=== PATIENT | male | born 1965 | race Two or more races ===

== ENCOUNTER 2020-10-04 12:58 | Emergency (ER) | payer OTHER ==
[2020-10-04] MEDS ORDERED: PIPERACILLIN/TAZOB 2.25 GM 2.25 GM in DEXTROSE 5%-WATER - 50 ML IVPB ONE (13:52)
[2020-10-04] MEDS ORDERED: VANCOMYCIN 1,000 MG in DEXTROSE 5%-WATER - 250 ML IVPB ONE (13:52)
[2020-10-04 13:55] VITALS: BMI 29.2
[2020-10-04] MEDS ORDERED: PIPERACILLIN/TAZOB 2.25 GM 2.25 GM/50 ML BAG IVPB ONE (14:10)
[2020-10-04] MEDS ORDERED: VANCOMYCIN 1 GRAM (PRE-DOCKED) 1,000 MG/250 ML BAG IVPB ONE (14:10)
[2020-10-04 15:00] LABS: BASO % 0.4 % (0-2.0); EOS % 0.3 % (0-4.5); HEMOGLOBIN 8.4 GM/dL (11.7-16.9); LYMPH % 4.5 % (8-40); MCH 29.1 pg (25.7-33.7); MCHC 32.2 g/dl (32.0-35.9); MEAN CELL VOLUME 90.5 fl (80-96); MEAN PLT VOLUME 9.8 fl (7.5-11.1); MONO % 5.4 % (3.8-10.2); NEUT % 89.4 % (42.8-82.8); PLATELET COUNT 207 K/MM3 (134-434); RBC 2.88 M/mm3 (4.00-5.60); RDW 17.9 % (11.9-15.9); WHITE BLOOD COUNT 8.8 K/mm3 (4.0-10.0)
[2020-10-04 15:23] LABS: ALBUMIN 2.4 g/dl (3.4-5.0); CALCIUM 7.4 mg/dL (8.5-10.1)
[2020-10-04 15:27] LABS: CREATININE 6.8 mg/dL (0.55-1.3)
[2020-10-04 15:28] LABS: TOT PROT 6.6 g/dl (6.4-8.2)
[2020-10-04 17:51] VITALS: BP 152/73; PULSE 77; TEMP 97.5
== END 2020-10-04 17:52 | disposition left against medical advice (07) ==
LOC: JER 12:58
DX: R73.9 Hyperglycemia, unspecified (principal)
CPT/HCPCS: 36415; 71045-TC-FY; 80053; 82962; 83605; 84484; 85025; 87040; 93005; 93010; C9803; G2251-GT; U0003

== ENCOUNTER 2020-11-13 00:30 | Inpatient (IN) | payer OTHER ==
[2020-11-13 00:40] VITALS: BMI 28.0
[2020-11-13] MEDS ORDERED: VANCOMYCIN 1,000 MG in DEXTROSE 5%-WATER - 250 ML IVPB ONE (01:19)
[2020-11-13] MEDS ORDERED: CEFEPIME HCL/D5W 1 GM/50 ML BAG IVPB ONE (01:20)
[2020-11-13] MEDS ORDERED: VANCOMYCIN 1 GRAM (PRE-DOCKED) 1,000 MG/250 ML BAG IVPB ONE ×2 (01:59→14:00)
[2020-11-13] MEDS ORDERED: CEFEPIME 1 GM/100 ML BAG IVPB ONE (01:59)
[2020-11-13 02:22] LABS: BASO % 0.9 % (0-2.0); HEMATOCRIT 25.7 % (35.4-49); HEMOGLOBIN 8.5 GM/dL (11.7-16.9); LYMPH % 11.8 % (8-40); MCH 28.9 pg (25.7-33.7); MCHC 33.2 g/dl (32.0-35.9); MEAN CELL VOLUME 86.9 fl (80-96); MEAN PLT VOLUME 9.6 fl (7.5-11.1); MONO % 8.1 % (3.8-10.2); NEUT % 78.2 % (42.8-82.8); PLATELET COUNT 278 K/MM3 (134-434); RBC 2.96 M/mm3 (4.00-5.60); RDW 17.1 % (11.9-15.9); WHITE BLOOD COUNT 8.8 K/mm3 (4.0-10.0)
[2020-11-13 02:53] LABS: CALCIUM 8.3 mg/dL (8.5-10.1)
[2020-11-13 02:54] LABS: ALBUMIN 2.7 g/dl (3.4-5.0); BLOOD UREA NITROGEN 50.5 mg/dL (7-18)
[2020-11-13 02:56] LABS: CREATININE 7.1 mg/dL (0.55-1.3)
[2020-11-13 02:58] LABS: BILIRUBIN,TOTAL 0.6 mg/dL (0.2-1); TOT PROT 7.6 g/dl (6.4-8.2)
[2020-11-13] MEDS ORDERED: ACETAMINOPHEN 500 MG TABLET (FP) PO ONE (03:28)
[2020-11-13] MEDS ORDERED: ACETAMINOPHEN INJECTION 100 ML IVPB ONE (03:29)
[2020-11-13] MEDS ORDERED: ACETAMINOPHEN 325 MG TABLET (FP) ONE (03:30)
[2020-11-13] MEDS ORDERED: amLODIPine BESYLATE 5 MG TABLET (FP) PO ONE (04:53)
[2020-11-13] MEDS ORDERED: oxyCODONE HCL 5 MG TABLET PO ONE (05:04)
[2020-11-13] MEDS ORDERED: amLODIPine BESYLATE 5 MG TABLET (FP) ONE (05:08)
[2020-11-13] MEDS ORDERED: oxyCODONE HCL 5 MG TABLET ONE (05:09)
[2020-11-13] MEDS ORDERED: HEPARIN NA (PORCINE) 5,000 UNITS/ML 1ML VIAL ONE (06:27)
[2020-11-13] MEDS: HEPARIN NA (PORCINE) 5,000 UNITS/ML 1ML VIAL SQ SCH ×3 (06:36→22:16)
[2020-11-13 06:48] LABS: BASO % 0.9 % (0-2.0); EOS % 0.4 % (0-4.5); HEMATOCRIT 24.5 % (35.4-49); HEMOGLOBIN 8.1 GM/dL (11.7-16.9); LYMPH % 16.6 % (8-40); MCH 28.8 pg (25.7-33.7); MCHC 33.1 g/dl (32.0-35.9); MEAN CELL VOLUME 87.1 fl (80-96); MEAN PLT VOLUME 9.6 fl (7.5-11.1); MONO % 9.8 % (3.8-10.2); NEUT % 72.3 % (42.8-82.8); PLATELET COUNT 259 K/MM3 (134-434); RBC 2.82 M/mm3 (4.00-5.60); RDW 16.8 % (11.9-15.9); WHITE BLOOD COUNT 7.7 K/mm3 (4.0-10.0)
[2020-11-13 07:06] LABS: CHLORIDE 103 mmol/L (98-107); POTASSIUM 4.6 mmol/L (3.5-5.1); SODIUM 136 mmol/L (136-145)
[2020-11-13 07:10] LABS: CALCIUM 7.9 mg/dL (8.5-10.1)
[2020-11-13 07:12] LABS: ALBUMIN 2.6 g/dl (3.4-5.0); ANION GAP 7 MMOL/L (8-16); BLOOD UREA NITROGEN 53.1 mg/dL (7-18); CO2 26 mmol/L (21-32); GLUCOSE,RANDOM 103 mg/dL (74-106); MAGNESIUM 2.1 mg/dL (1.8-2.4)
[2020-11-13 07:15] LABS: BILIRUBIN,TOTAL 0.6 mg/dL (0.2-1); IRON SERUM 23 ug/dL (50-175); SGOT/AST 33 U/L (15-37); SGPT/ALT 37 U/L (13-61); TOT PROT 7.1 g/dl (6.4-8.2)
[2020-11-13 07:17] LABS: ALK PHOS 244 U/L (45-117); TOTAL IRON BINDING CAPACITY 214 ug/dL (250-450)
[2020-11-13] MEDS: INSULIN SLIDING SCALE (NOVOLOG) 1 VIAL SQ SCH ×4 (07:27→22:16)
[2020-11-13 07:34] LABS: CREATININE 7.6 mg/dL (0.55-1.3)
[2020-11-13] MEDS ORDERED: CEFEPIME 0.5 GM in DEXTROSE 5%-WATER - 100 ML IVPB SCH (10:00)
[2020-11-13] MEDS ORDERED: DEXTROSE 5%-WATER - 50 ML IVPB ONE ×2 (12:44→17:52)
[2020-11-13] MEDS ORDERED: PIPERACILLIN/TAZOBACTAM 2.25 GM VIAL IVPB ONE ×2 (12:44→17:52)
[2020-11-13] MEDS: PIPERACILLIN/TAZOB 2.25 GM 2.25 GM in DEXTROSE 5%-WATER - 50 ML IVPB SCH ×2 (12:46→17:57)
[2020-11-13] MEDS: amLODIPine BESYLATE 5 MG TABLET (FP) PO SCH (13:02)
[2020-11-13] MEDS ORDERED: oxyCODONE HCL 5 MG TABLET PO PRN (16:12)
[2020-11-13] MEDS ORDERED: FUROSEMIDE 40 MG TABLET (FP) PO ONE (16:59)
[2020-11-13] MEDS ORDERED: clonazePAM 2 MG TABLET PO PRN (17:05)
[2020-11-13] MEDS ORDERED: ZOLPIDEM TARTRATE 5 MG TABLET PO PRN (17:06)
[2020-11-13] MEDS ORDERED: risperiDONE 1 MG TABLET PO ONE (18:00)
[2020-11-13] MEDS ORDERED: ARIPiprazole 15 MG TABLET PO ONE (18:00)
[2020-11-13] MEDS: ACETAMINOPHEN 325 MG TABLET (FP) PO PRN (22:16)
[2020-11-13] MEDS ORDERED: ONDANSETRON 4 MG/2 ML VIAL IVPUSH ONE (22:55)
[2020-11-14] MEDS ORDERED: PIPERACILLIN/TAZOBACTAM 2.25 GM VIAL IVPB ONE ×4 (01:46→16:55)
[2020-11-14] MEDS ORDERED: DEXTROSE 5%-WATER - 50 ML IVPB ONE ×4 (01:46→16:55)
[2020-11-14] MEDS: PIPERACILLIN/TAZOB 2.25 GM 2.25 GM in DEXTROSE 5%-WATER - 50 ML IVPB SCH ×4 (02:15→18:03)
[2020-11-14] MEDS: INSULIN SLIDING SCALE (NOVOLOG) 1 VIAL SQ SCH ×4 (06:35→22:28)
[2020-11-14] MEDS: HEPARIN NA (PORCINE) 5,000 UNITS/ML 1ML VIAL SQ SCH ×3 (06:35→22:28)
[2020-11-14] MEDS ORDERED: EPOETIN ALFA-EPBX 10,000 UNIT/ML VIAL SQ ONE (08:00)
[2020-11-14] MEDS ORDERED: SODIUM CHLORIDE 250 ML IV PRN ×2 (08:00→12:47)
[2020-11-14] MEDS ORDERED: CEFEPIME 0.5 GM in DEXTROSE 5%-WATER - 100 ML IVPB SCH (10:00)
[2020-11-14 10:41] LABS: BASO % 1.1 % (0-2.0); EOS % 1.7 % (0-4.5); HEMATOCRIT 24.5 % (35.4-49); HEMOGLOBIN 8.4 GM/dL (11.7-16.9); LYMPH % 13.5 % (8-40); MCH 29.2 pg (25.7-33.7); MCHC 34.3 g/dl (32.0-35.9); MEAN CELL VOLUME 84.9 fl (80-96); NEUT % 75.7 % (42.8-82.8); PLATELET COUNT 276 K/MM3 (134-434); RBC 2.89 M/mm3 (4.00-5.60); RDW 16.7 % (11.9-15.9); WHITE BLOOD COUNT 7.1 K/mm3 (4.0-10.0)
[2020-11-14 11:06] LABS: POTASSIUM 3.6 mmol/L (3.5-5.1)
[2020-11-14 11:07] LABS: ALBUMIN 2.8 g/dl (3.4-5.0); BLOOD UREA NITROGEN 37.1 mg/dL (7-18); CALCIUM 8.2 mg/dL (8.5-10.1)
[2020-11-14 11:10] LABS: CREATININE 4.9 mg/dL (0.55-1.3)
[2020-11-14 11:11] LABS: BILIRUBIN,TOTAL 0.7 mg/dL (0.2-1); TOT PROT 7.4 g/dl (6.4-8.2)
[2020-11-14] MEDS: amLODIPine BESYLATE 5 MG TABLET (FP) PO SCH (15:17)
[2020-11-14] MEDS: ACETAMINOPHEN 325 MG TABLET (FP) PO PRN (22:08)
[2020-11-15] MEDS ORDERED: PIPERACILLIN/TAZOBACTAM 2.25 GM VIAL IVPB ONE ×3 (01:36→19:56)
[2020-11-15] MEDS ORDERED: DEXTROSE 5%-WATER - 50 ML IVPB ONE ×3 (01:36→19:56)
[2020-11-15] MEDS: PIPERACILLIN/TAZOB 2.25 GM 2.25 GM in DEXTROSE 5%-WATER - 50 ML IVPB SCH ×3 (01:43→20:01)
[2020-11-15] MEDS: ACETAMINOPHEN 325 MG TABLET (FP) PO PRN ×2 (01:43→13:00)
[2020-11-15] MEDS: INSULIN SLIDING SCALE (NOVOLOG) 1 VIAL SQ SCH ×4 (06:04→21:09)
[2020-11-15] MEDS: HEPARIN NA (PORCINE) 5,000 UNITS/ML 1ML VIAL SQ SCH ×3 (06:04→21:05)
[2020-11-15 09:02] LABS: BASO % 0.9 % (0-2.0); EOS % 2.2 % (0-4.5); HEMATOCRIT 24.6 % (35.4-49); HEMOGLOBIN 8.3 GM/dL (11.7-16.9); LYMPH % 20.7 % (8-40); MCH 29.2 pg (25.7-33.7); MCHC 33.9 g/dl (32.0-35.9); MEAN CELL VOLUME 86.1 fl (80-96); MEAN PLT VOLUME 9.5 fl (7.5-11.1); MONO % 11.7 % (3.8-10.2); NEUT % 64.5 % (42.8-82.8); PLATELET COUNT 263 K/MM3 (134-434); RBC 2.85 M/mm3 (4.00-5.60); RDW 16.6 % (11.9-15.9); WHITE BLOOD COUNT 6.5 K/mm3 (4.0-10.0)
[2020-11-15 09:28] LABS: POTASSIUM 4.9 mmol/L (3.5-5.1)
[2020-11-15] MEDS ORDERED: CEFEPIME 0.5 GM in DEXTROSE 5%-WATER - 100 ML IVPB SCH (10:00)
[2020-11-15] MEDS ORDERED: FUROSEMIDE 40 MG TABLET (FP) PO SCH (10:00)
[2020-11-15 10:33] LABS: CALCIUM 7.9 mg/dL (8.5-10.1)
[2020-11-15 10:34] LABS: ALBUMIN 2.6 g/dl (3.4-5.0)
[2020-11-15 10:36] LABS: MAGNESIUM 2.1 mg/dL (1.8-2.4)
[2020-11-15 10:37] LABS: CREATININE 6.9 mg/dL (0.55-1.3)
[2020-11-15 10:38] LABS: BILIRUBIN,TOTAL 0.6 mg/dL (0.2-1); TOT PROT 7.2 g/dl (6.4-8.2)
[2020-11-15] MEDS ORDERED: VANCOMYCIN 1 GRAM (PRE-DOCKED) 1,000 MG/250 ML BAG IVPB ONE (11:13)
[2020-11-15] MEDS: amLODIPine BESYLATE 5 MG TABLET (FP) PO SCH (12:18)
[2020-11-15] MEDS: ARIPiprazole 30 MG TABLET PO SCH (12:18)
[2020-11-15] MEDS: FUROSEMIDE 40 MG TABLET (FP) PO SCH (12:18)
[2020-11-15] MEDS: risperiDONE 2 MG TABLET PO SCH (12:19)
[2020-11-16] MEDS ORDERED: PIPERACILLIN/TAZOBACTAM 2.25 GM VIAL IVPB ONE ×3 (02:42→21:30)
[2020-11-16] MEDS ORDERED: DEXTROSE 5%-WATER - 50 ML IVPB ONE ×2 (02:43→14:17)
[2020-11-16] MEDS: PIPERACILLIN/TAZOB 2.25 GM 2.25 GM in DEXTROSE 5%-WATER - 50 ML IVPB SCH ×3 (02:46→21:33)
[2020-11-16] MEDS: HEPARIN NA (PORCINE) 5,000 UNITS/ML 1ML VIAL SQ SCH ×3 (05:38→21:46)
[2020-11-16] MEDS: INSULIN SLIDING SCALE (NOVOLOG) 1 VIAL SQ SCH ×4 (06:45→21:46)
[2020-11-16] MEDS ORDERED: SODIUM CHLORIDE 250 ML IV PRN (07:57)
[2020-11-16] MEDS ORDERED: EPOETIN ALFA-EPBX 4,000 UNIT/ML VIAL SQ ONE (08:00)
[2020-11-16 09:52] LABS: EOS % 2.3 % (0-4.5); HEMATOCRIT 24.5 % (35.4-49); HEMOGLOBIN 8.3 GM/dL (11.7-16.9); LYMPH % 18.3 % (8-40); MCH 29.2 pg (25.7-33.7); MCHC 33.9 g/dl (32.0-35.9); MEAN CELL VOLUME 86.3 fl (80-96); MEAN PLT VOLUME 9.7 fl (7.5-11.1); MONO % 8.8 % (3.8-10.2); NEUT % 69.6 % (42.8-82.8); PLATELET COUNT 245 K/MM3 (134-434); RBC 2.84 M/mm3 (4.00-5.60); RDW 17.1 % (11.9-15.9); WHITE BLOOD COUNT 5.8 K/mm3 (4.0-10.0)
[2020-11-16 10:08] LABS: CHLORIDE 99 mmol/L (98-107); POTASSIUM 4.7 mmol/L (3.5-5.1); SODIUM 137 mmol/L (136-145)
[2020-11-16 10:09] LABS: ALBUMIN 2.6 g/dl (3.4-5.0); ANION GAP 11 MMOL/L (8-16); CALCIUM 8.3 mg/dL (8.5-10.1); CO2 26 mmol/L (21-32); GLUCOSE,RANDOM 204 mg/dL (74-106); MAGNESIUM 2.4 mg/dL (1.8-2.4)
[2020-11-16 10:12] LABS: SGOT/AST 34 U/L (15-37); SGPT/ALT 37 U/L (13-61)
[2020-11-16 10:14] LABS: BILIRUBIN,TOTAL 0.6 mg/dL (0.2-1); CREATININE 8.7 mg/dL (0.55-1.3); TOT PROT 7.2 g/dl (6.4-8.2)
[2020-11-16 10:15] LABS: ALK PHOS 244 U/L (45-117)
[2020-11-16] MEDS: ARIPiprazole 30 MG TABLET PO SCH (11:50)
[2020-11-16] MEDS: risperiDONE 2 MG TABLET PO SCH (11:50)
[2020-11-16] MEDS: amLODIPine BESYLATE 5 MG TABLET (FP) PO SCH (11:50)
[2020-11-16] MEDS ORDERED: hydrALAZINE HCL 20 MG/ML VIAL IVPB ONE (11:55)
[2020-11-16] MEDS ORDERED: PT OWN MED DRAWER 7, Y5N ONE (16:43)
[2020-11-16] MEDS: ACETAMINOPHEN 325 MG TABLET (FP) PO PRN (20:39)
[2020-11-17] MEDS ORDERED: PIPERACILLIN/TAZOBACTAM 2.25 GM VIAL IVPB ONE ×3 (01:47→18:06)
[2020-11-17] MEDS ORDERED: DEXTROSE 5%-WATER - 50 ML IVPB ONE ×3 (01:47→18:07)
[2020-11-17] MEDS: PIPERACILLIN/TAZOB 2.25 GM 2.25 GM in DEXTROSE 5%-WATER - 50 ML IVPB SCH ×3 (01:49→18:09)
[2020-11-17] MEDS: HEPARIN NA (PORCINE) 5,000 UNITS/ML 1ML VIAL SQ SCH ×3 (05:48→21:36)
[2020-11-17] MEDS: INSULIN SLIDING SCALE (NOVOLOG) 1 VIAL SQ SCH ×4 (06:13→21:36)
[2020-11-17 08:48] LABS: BASO % 1.3 % (0-2.0); EOS % 2.3 % (0-4.5); HEMATOCRIT 24.9 % (35.4-49); HEMOGLOBIN 8.5 GM/dL (11.7-16.9); LYMPH % 19.7 % (8-40); MCH 29.2 pg (25.7-33.7); MEAN PLT VOLUME 8.9 fl (7.5-11.1); MONO % 8.6 % (3.8-10.2); NEUT % 68.1 % (42.8-82.8); PLATELET COUNT 266 K/MM3 (134-434); RDW 17.1 % (11.9-15.9); WHITE BLOOD COUNT 6.5 K/mm3 (4.0-10.0)
[2020-11-17 08:53] LABS: POTASSIUM 4.5 mmol/L (3.5-5.1)
[2020-11-17 09:12] LABS: ALBUMIN 2.7 g/dl (3.4-5.0); CALCIUM 8.9 mg/dL (8.5-10.1); PHOSPHOROUS 6.7 mg/dL (2.5-4.9)
[2020-11-17 09:13] LABS: BLOOD UREA NITROGEN 45.6 mg/dL (7-18); MAGNESIUM 2.3 mg/dL (1.8-2.4)
[2020-11-17 09:16] LABS: CREATININE 6.7 mg/dL (0.55-1.3)
[2020-11-17 09:17] LABS: BILIRUBIN,TOTAL 0.6 mg/dL (0.2-1)
[2020-11-17 09:20] LABS: TOT PROT 7.5 g/dl (6.4-8.2)
[2020-11-17] MEDS: ARIPiprazole 30 MG TABLET PO SCH (10:03)
[2020-11-17] MEDS: risperiDONE 1 MG TABLET PO SCH (10:04)
[2020-11-17] MEDS: FUROSEMIDE 40 MG TABLET (FP) PO SCH (10:08)
[2020-11-17] MEDS: amLODIPine BESYLATE 5 MG TABLET (FP) PO SCH (11:06)
[2020-11-17] MEDS ORDERED: SODIUM CHLORIDE 250 ML IV PRN (11:15)
[2020-11-17] MEDS: MUPIROCIN 2% TOPICAL OINTMENT 22 GM TUBE TP SCH ×2 (16:00→21:37)
[2020-11-17] MEDS ORDERED: INSULIN (NOVOLOG) ASPART 100 UNITS/ML 10ML VIAL ONE (17:38)
[2020-11-18] MEDS ORDERED: DEXTROSE 5%-WATER - 50 ML IVPB ONE ×2 (00:29→09:25)
[2020-11-18] MEDS ORDERED: PIPERACILLIN/TAZOBACTAM 2.25 GM VIAL IVPB ONE ×2 (00:29→09:25)
[2020-11-18] MEDS: PIPERACILLIN/TAZOB 2.25 GM 2.25 GM in DEXTROSE 5%-WATER - 50 ML IVPB SCH ×2 (02:13→15:03)
[2020-11-18] MEDS: HEPARIN NA (PORCINE) 5,000 UNITS/ML 1ML VIAL SQ SCH ×3 (06:31→23:19)
[2020-11-18] MEDS: INSULIN SLIDING SCALE (NOVOLOG) 1 VIAL SQ SCH ×4 (06:34→23:19)
[2020-11-18] MEDS ORDERED: PT OWN MED DRAWER 7, Y5N ONE (09:25)
[2020-11-18] MEDS: amLODIPine BESYLATE 5 MG TABLET (FP) PO SCH (09:32)
[2020-11-18] MEDS: ARIPiprazole 30 MG TABLET PO SCH (09:33)
[2020-11-18] MEDS: risperiDONE 1 MG TABLET PO SCH (09:33)
[2020-11-18] MEDS: MUPIROCIN 2% TOPICAL OINTMENT 22 GM TUBE TP SCH ×2 (09:33→23:18)
[2020-11-18 11:09] LABS: BASO % 1.2 % (0-2.0); EOS % 2.3 % (0-4.5); HEMATOCRIT 23.9 % (35.4-49); HEMOGLOBIN 8.1 GM/dL (11.7-16.9); LYMPH % 18.5 % (8-40); MCHC 33.7 g/dl (32.0-35.9); MEAN CELL VOLUME 85.9 fl (80-96); MEAN PLT VOLUME 9.1 fl (7.5-11.1); MONO % 6.8 % (3.8-10.2); NEUT % 71.2 % (42.8-82.8); PLATELET COUNT 246 K/MM3 (134-434); RBC 2.78 M/mm3 (4.00-5.60); RDW 17.1 % (11.9-15.9); WHITE BLOOD COUNT 6.7 K/mm3 (4.0-10.0)
[2020-11-18] MEDS ORDERED: HEPARIN NA (PORCINE) 5,000 UNITS/ML 1ML VIAL IVPUSH ONE (11:15)
[2020-11-18 11:47] LABS: CHLORIDE 99 mmol/L (98-107); POTASSIUM 4.3 mmol/L (3.5-5.1); SODIUM 134 mmol/L (136-145)
[2020-11-18 11:53] LABS: CALCIUM 8.1 mg/dL (8.5-10.1)
[2020-11-18 11:54] LABS: ALBUMIN 2.6 g/dl (3.4-5.0); ANION GAP 10 MMOL/L (8-16); BLOOD UREA NITROGEN 58.6 mg/dL (7-18); CO2 25 mmol/L (21-32); GLUCOSE,RANDOM 178 mg/dL (74-106); MAGNESIUM 2.1 mg/dL (1.8-2.4)
[2020-11-18 11:57] LABS: SGOT/AST 43 U/L (15-37); SGPT/ALT 46 U/L (13-61)
[2020-11-18 11:58] LABS: BILIRUBIN,TOTAL 0.9 mg/dL (0.2-1); TOT PROT 7.4 g/dl (6.4-8.2)
[2020-11-18 12:00] LABS: ALK PHOS 245 U/L (45-117)
[2020-11-18] MEDS ORDERED: EPOETIN ALFA-EPBX 4,000 UNIT/ML VIAL SQ ONE (12:00)
[2020-11-18] MEDS: LOSARTAN POTASSIUM 50 MG TABLET PO SCH (17:22)
[2020-11-18] MEDS: ACETAMINOPHEN 325 MG TABLET (FP) PO PRN (21:24)
[2020-11-19] MEDS: ACETAMINOPHEN 325 MG TABLET (FP) PO PRN (04:25)
[2020-11-19] MEDS: INSULIN SLIDING SCALE (NOVOLOG) 1 VIAL SQ SCH ×4 (06:10→21:22)
[2020-11-19] MEDS: HEPARIN NA (PORCINE) 5,000 UNITS/ML 1ML VIAL SQ SCH ×3 (06:10→21:21)
[2020-11-19 09:28] LABS: EOS % 1.8 % (0-4.5); HEMATOCRIT 25.4 % (35.4-49); HEMOGLOBIN 8.6 GM/dL (11.7-16.9); LYMPH % 16.7 % (8-40); MCHC 33.8 g/dl (32.0-35.9); MEAN CELL VOLUME 85.8 fl (80-96); MEAN PLT VOLUME 9.1 fl (7.5-11.1); MONO % 7.4 % (3.8-10.2); NEUT % 73.1 % (42.8-82.8); PLATELET COUNT 262 K/MM3 (134-434); RBC 2.96 M/mm3 (4.00-5.60); RDW 16.7 % (11.9-15.9); WHITE BLOOD COUNT 6.7 K/mm3 (4.0-10.0)
[2020-11-19 09:54] LABS: POTASSIUM 4.3 mmol/L (3.5-5.1)
[2020-11-19 10:28] LABS: ALBUMIN 2.7 g/dl (3.4-5.0); BLOOD UREA NITROGEN 43.4 mg/dL (7-18); CALCIUM 8.9 mg/dL (8.5-10.1)
[2020-11-19 10:29] LABS: MAGNESIUM 2.2 mg/dL (1.8-2.4)
[2020-11-19 10:32] LABS: CREATININE 6.5 mg/dL (0.55-1.3)
[2020-11-19 10:33] LABS: BILIRUBIN,TOTAL 0.7 mg/dL (0.2-1); TOT PROT 7.6 g/dl (6.4-8.2)
[2020-11-19] MEDS: AMOX TR/POT CLAV 500MG/125MG TABLETS (FP) PO SCH (10:47)
[2020-11-19] MEDS: amLODIPine BESYLATE 5 MG TABLET (FP) PO SCH (10:47)
[2020-11-19] MEDS: LOSARTAN POTASSIUM 50 MG TABLET PO SCH (10:49)
[2020-11-19] MEDS: ARIPiprazole 30 MG TABLET PO SCH (10:49)
[2020-11-19] MEDS: risperiDONE 1 MG TABLET PO SCH (10:50)
[2020-11-19] MEDS ORDERED: FUROSEMIDE 40 MG TABLET (FP) PO ONE (14:11)
[2020-11-19] MEDS: MUPIROCIN 2% TOPICAL OINTMENT 22 GM TUBE TP SCH ×2 (16:28→21:21)
[2020-11-20] MEDS: ACETAMINOPHEN 325 MG TABLET (FP) PO PRN (01:38)
[2020-11-20] MEDS: HEPARIN NA (PORCINE) 5,000 UNITS/ML 1ML VIAL SQ SCH ×3 (05:55→21:33)
[2020-11-20] MEDS: INSULIN SLIDING SCALE (NOVOLOG) 1 VIAL SQ SCH ×4 (06:02→22:39)
[2020-11-20] MEDS ORDERED: SODIUM CHLORIDE 250 ML IV PRN (08:58)
[2020-11-20 09:00] LABS: BASO % 0.8 % (0-2.0); EOS % 2.2 % (0-4.5); HEMATOCRIT 24.9 % (35.4-49); HEMOGLOBIN 8.4 GM/dL (11.7-16.9); LYMPH % 19.3 % (8-40); MCH 29.2 pg (25.7-33.7); MCHC 33.8 g/dl (32.0-35.9); MEAN CELL VOLUME 86.3 fl (80-96); MEAN PLT VOLUME 9.4 fl (7.5-11.1); MONO % 6.6 % (3.8-10.2); NEUT % 71.1 % (42.8-82.8); PLATELET COUNT 232 K/MM3 (134-434); RBC 2.88 M/mm3 (4.00-5.60); RDW 17.4 % (11.9-15.9); WHITE BLOOD COUNT 8.9 K/mm3 (4.0-10.0)
[2020-11-20 09:22] LABS: CHLORIDE 97 mmol/L (98-107); POTASSIUM 4.6 mmol/L (3.5-5.1); SODIUM 134 mmol/L (136-145)
[2020-11-20 09:25] LABS: ANION GAP 10 MMOL/L (8-16); BLOOD UREA NITROGEN 55.8 mg/dL (7-18); CALCIUM 8.9 mg/dL (8.5-10.1); CO2 27 mmol/L (21-32); GLUCOSE,RANDOM 124 mg/dL (74-106)
[2020-11-20 09:26] LABS: ALBUMIN 2.7 g/dl (3.4-5.0); MAGNESIUM 2.1 mg/dL (1.8-2.4)
[2020-11-20 09:28] LABS: SGPT/ALT 52 U/L (13-61)
[2020-11-20 09:29] LABS: SGOT/AST 42 U/L (15-37)
[2020-11-20 09:30] LABS: TOT PROT 7.8 g/dl (6.4-8.2)
[2020-11-20 09:31] LABS: ALK PHOS 275 U/L (45-117)
[2020-11-20 09:36] LABS: CREATININE 8.4 mg/dL (0.55-1.3)
[2020-11-20] MEDS: amLODIPine BESYLATE 5 MG TABLET (FP) PO SCH (09:40)
[2020-11-20] MEDS: MUPIROCIN 2% TOPICAL OINTMENT 22 GM TUBE TP SCH ×2 (09:41→21:33)
[2020-11-20] MEDS: FUROSEMIDE 40 MG TABLET (FP) PO SCH (09:41)
[2020-11-20] MEDS: ARIPiprazole 30 MG TABLET PO SCH (09:41)
[2020-11-20] MEDS: AMOX TR/POT CLAV 500MG/125MG TABLETS (FP) PO SCH (09:41)
[2020-11-20] MEDS: risperiDONE 1 MG TABLET PO SCH (09:42)
[2020-11-21] MEDS: HEPARIN NA (PORCINE) 5,000 UNITS/ML 1ML VIAL SQ SCH ×2 (06:12→14:16)
[2020-11-21] MEDS: INSULIN SLIDING SCALE (NOVOLOG) 1 VIAL SQ SCH ×2 (06:14→12:13)
[2020-11-21] MEDS ORDERED: EPOETIN ALFA-EPBX 4,000 UNIT/ML VIAL IVPUSH ONE (09:00)
[2020-11-21 09:36] LABS: BASO % 0.9 % (0-2.0); EOS % 1.9 % (0-4.5); HEMATOCRIT 22.6 % (35.4-49); HEMOGLOBIN 7.7 GM/dL (11.7-16.9); MCHC 34.1 g/dl (32.0-35.9); WHITE BLOOD COUNT 7.3 K/mm3 (4.0-10.0)
[2020-11-21 09:42] LABS: LYMPH % 14.3 % (8-40); MEAN CELL VOLUME 84.9 fl (80-96); MEAN PLT VOLUME 9.6 fl (7.5-11.1); MONO % 5.2 % (3.8-10.2); NEUT % 77.7 % (42.8-82.8); PLATELET COUNT 236 K/MM3 (134-434); RBC 2.66 M/mm3 (4.00-5.60); RDW 17.3 % (11.9-15.9)
[2020-11-21 09:45] LABS: CHLORIDE 98 mmol/L (98-107); POTASSIUM 4.9 mmol/L (3.5-5.1); SODIUM 137 mmol/L (136-145)
[2020-11-21 09:49] LABS: ALBUMIN 2.7 g/dl (3.4-5.0); ANION GAP 15 MMOL/L (8-16); BLOOD UREA NITROGEN 70.5 mg/dL (7-18); CO2 24 mmol/L (21-32)
[2020-11-21 09:50] LABS: GLUCOSE,RANDOM 199 mg/dL (74-106); MAGNESIUM 2.4 mg/dL (1.8-2.4)
[2020-11-21 09:52] LABS: SGPT/ALT 48 U/L (13-61)
[2020-11-21 09:53] LABS: CREATININE 9.5 mg/dL (0.55-1.3); SGOT/AST 37 U/L (15-37)
[2020-11-21 09:54] LABS: ALK PHOS 251 U/L (45-117); BILIRUBIN,TOTAL 0.8 mg/dL (0.2-1); TOT PROT 7.4 g/dl (6.4-8.2)
[2020-11-21 11:16] VITALS: TEMP 98.4
[2020-11-21] MEDS: amLODIPine BESYLATE 5 MG TABLET (FP) PO SCH (11:41)
[2020-11-21] MEDS ORDERED: LISINOPRIL 5 MG TABLET PO SCH (11:45)
[2020-11-21] MEDS ORDERED: PT OWN MED DRAWER 7, Y5N ONE (12:09)
[2020-11-21] MEDS: AMOX TR/POT CLAV 500MG/125MG TABLETS (FP) PO SCH (12:12)
[2020-11-21] MEDS: ARIPiprazole 30 MG TABLET PO SCH (12:12)
[2020-11-21] MEDS: risperiDONE 1 MG TABLET PO SCH (12:13)
[2020-11-21] MEDS: MUPIROCIN 2% TOPICAL OINTMENT 22 GM TUBE TP SCH (12:17)
[2020-11-21 12:53] VITALS: BP 155/88; PULSE 104
[2020-11-22 13:08] LABS: HEP B CORE AB, TOT Negative (Negative)
== END 2020-11-21 15:14 | DRG 383 ==
LOC: JER 00:30 → JERBED 03:48 → J5S 10:26
PROVIDERS: ADMIT Internal Medicine; ATTEND Nurse Practitioner Family
PROC: 5A1D70Z Performance of Urinary Filtration, Intermittent, Less than 6 Hours Per Day (ICD-10-PCS; principal; 2020-11-14)
PROC: 5A1D70Z Performance of Urinary Filtration, Intermittent, Less than 6 Hours Per Day (ICD-10-PCS; 2020-11-15)
PROC: 5A1D70Z Performance of Urinary Filtration, Intermittent, Less than 6 Hours Per Day (ICD-10-PCS; 2020-11-16)
PROC: 5A1D70Z Performance of Urinary Filtration, Intermittent, Less than 6 Hours Per Day (ICD-10-PCS; 2020-11-18)
PROC: 5A1D70Z Performance of Urinary Filtration, Intermittent, Less than 6 Hours Per Day (ICD-10-PCS; 2020-11-21)
DX: L03.115 Cellulitis of right lower limb (principal); L03.116 Cellulitis of left lower limb; E11.621 Type 2 diabetes mellitus with foot ulcer; L97.518 Non-pressure chronic ulcer of other part of right foot with other specified severity; I13.2 Hypertensive heart and chronic kidney disease with heart failure and with stage 5 chronic kidney disease, or end stage renal disease; I50.9 Heart failure, unspecified; E11.22 Type 2 diabetes mellitus with diabetic chronic kidney disease; N18.6 End stage renal disease; E16.2 Hypoglycemia, unspecified; E87.70 Fluid overload, unspecified; D63.1 Anemia in chronic kidney disease; Z99.2 Dependence on renal dialysis
CPT/HCPCS: 36415; 71045-TC-FY; 73630-TC-RT-FY; 78315-TC; 80053; 82607; 82728; 82746; 82962; 83036; 83540; 83550; 83735; 84100; 85025; 85045; 85651; 86140; 86704; 86706; 86707; 86708; 86709; 86803; 87040; 87340; 93005; 93010; 97116-GP; 97161-GP; 99285-25; A9503; C9803; G0480; J1644; Q5106; U0003; U0005

== ENCOUNTER 2022-04-24 18:14 | Emergency (ER) | payer OTHER ==
[2022-04-24 18:21] VITALS: BP 187/82; PULSE 83; RESP 22; TEMP 97.5; BMI 25.5
== END 2022-04-24 20:00 | disposition home or self-care (01) ==
LOC: JER 18:14
DX: S42.022A Displaced fracture of shaft of left clavicle, initial encounter for closed fracture (principal); W01.0XXA Fall on same level from slipping, tripping and stumbling without subsequent striking against object, initial encounter
CPT/HCPCS: 73030-TC-LT-FY; 73050-TC-FY; 99284-25

== ENCOUNTER 2024-04-28 13:48 | Emergency (ER) | payer OTHER ==
[2024-04-28 14:06] VITALS: PULSE 78; RESP 18; TEMP 98.4; BMI 26.7
[2024-04-28 15:07] LABS: EOS % 1.3 % (0-4.5); HEMATOCRIT 30.5 % (35.4-49); HEMOGLOBIN 9.9 GM/dL (11.7-16.9); LYMPH % 17.9 % (8-40); MCHC 32.4 g/dl (32.0-35.9); MEAN CELL VOLUME 89.5 fl (80-96); MEAN PLT VOLUME 9.6 fl (7.5-11.1); NEUT % 74.8 % (42.8-82.8); PLATELET COUNT 170 10^3/uL (134-434); RDW 17.7 % (11.9-15.9); WHITE BLOOD COUNT 4.2 K/mm3 (4.0-10.0)
[2024-04-28 15:12] LABS: INR 1.19 (0.83-1.09); PROTHROMBIN TIME (PATIENT) 13.6 SEC (9.7-13.0)
[2024-04-28 15:15] LABS: ACTIVATED PTT 29.8 SECONDS (25.2-36.5)
[2024-04-28 15:23] LABS: CHLORIDE 102 mmol/L (98-107); POTASSIUM 5.7 mmol/L (3.5-5.1); SODIUM 138 mmol/L (136-145)
[2024-04-28 15:25] LABS: ALBUMIN 3.2 g/dl (3.4-5.0); ANION GAP 13 mmol/L (4-13); BLOOD UREA NITROGEN 80.1 mg/dL (7-18); CALCIUM 8.4 mg/dL (8.5-10.1); CO2 22 mmol/L (21-32)
[2024-04-28 15:26] LABS: GLUCOSE,RANDOM 123 mg/dL (74-106)
[2024-04-28 15:28] LABS: SGOT/AST 22 U/L (15-37); SGPT/ALT 27 U/L (13-61)
[2024-04-28 15:30] LABS: BILIRUBIN,TOTAL 0.6 mg/dL (0.2-1); CREATININE 11.4 mg/dL (0.55-1.3); TOT PROT 6.7 g/dl (6.4-8.2)
[2024-04-28 15:31] LABS: ALK PHOS 79 U/L (45-117)
[2024-04-28 16:59] VITALS: BP 166/103
[2024-04-28 17:23] LABS: URINE BARBITURATES NEGATIVE (NEGATIVE); URINE BENZODIAZEPINES NEGATIVE (NEGATIVE)
[2024-04-28 17:24] LABS: COCAINE, UR NEGATIVE (NEGATIVE); EPI CELLS 1 /uL (0-25.1); HYALINE CASTS 0 /uL (0-3.1); METHADONE, UR NEGATIVE (NEGATIVE); OPIATES, URI NEGATIVE (NEGATIVE); PH,URINE 8.5 (5.0-8.0); PHENCYCLIDINE,URINE NEGATIVE (NEGATIVE); URINE APPEARANCE CLEAR; URINE BACTERIA 428 /uL (0-1359); URINE BILIRUBIN NEGATIVE (NEGATIVE); URINE COLOR YELLOW; URINE GLUCOSE (UA) TRACE (NEGATIVE); URINE KETONE NEGATIVE (NEGATIVE); URINE LEUK ESTERASE NEGATIVE (NEGATIVE); URINE NITRITE NEGATIVE (NEGATIVE); URINE PROTEIN 3+ (NEGATIVE); URINE RBC 14 /uL (0-23.9); URINE UROBILINOGEN 0.2 mg/dL (0.2-1.0)
[2024-04-28 17:37] LABS: URINE AMPHETAMINES NEGATIVE (NEGATIVE)
== END 2024-04-28 17:21 | disposition left against medical advice (07) ==
LOC: JER 13:48
DX: H33.23 Serous retinal detachment, bilateral (principal)
CPT/HCPCS: 36415; 70450-TC; 80053; 80307; 81003; 84484; 85025; 85610; 85730; 87086; 93005; 93010; 99285-25